=== PATIENT | male | born 1960 | race Caucasian/White ===

== ENCOUNTER 2024-01-17 08:29 | Day surgery (SDC) | payer OTHER ==
[2024-01-14 11:27] LABS: Absolute Eosinophils 0.3 K/uL (0-0.5); Absolute Lymphocytes (CBC) 2.1 K/uL (0.7-4.9); Absolute Monocytes 0.5 K/uL (0.1-1.3); Absolute Neutrophil 5.1 K/uL (1.8-8.0); Basophils % 0.5 % (0-1.3); Eosinophils % 4.3 % (0-4.4); Hematocrit 43.2 % (39.6-49.0); Hemoglobin 14.4 g/dL (13.6-17.9); Lymphocytes % 25.4 % (15.3-44.8); MCH 29.7 pg (27.0-35.0); MCHC 33.2 g/dL (32.0-36.0); MCV 89.3 fL (80-100); MPV 8.6 fL (7.6-11.3); Monocytes % 6.1 % (3.3-12.3); Neutrophils % 63.7 % (41.7-73.7); Platelets 246 thou/uL (152-406); RBC Red Blood Cell Count 4.84 M/uL (4.33-5.43); Red Cell Distribution Width 13.5 % (12.1-15.2)
[2024-01-14 11:47] LABS: ALT/SGPT 16 U/L (16-61); Albumin 3.4 g/dL (3.4-5.0); Alkaline Phosphatase 42 U/L (45-117); Anion Gap 7.3 mEq/L (5.0-15.0); BUN Blood Urea Nitrogen 15 mg/dL (7-18); Bicarbonate 30 mEq/L (21-32); Bilirubin Total 0.4 mg/dL (0.2-1.0); Globulin 3.3 g/dL (2.3-3.5); Glomerular Filtration Rate 66 ml/min (=/>90); Glucose Level 131 mg/dL (74-106); Lipase 38 U/L (13-75); Potassium 4.3 mEq/L (3.5-5.1); Protein, Total 6.7 g/dL (6.4-8.2); Sodium Level 141 mEq/L (136-145)
--- NOTE | 2024-01-14 11:47 | RAD REPORT ---
EXAMINATION: TWO VIEW CHEST XR CLINICAL INDICATION: Pre op pending cholecystectomy/hernia repair TECHNIQUE: 2 views of the chest was performed. COMPARISON: No prior exam. FINDINGS: The lungs are well inflated and clear. The heart is normal in size. No displaced fractures evident. IMPRESSION: No acute or significant abnormalities.
[2024-01-14 11:57] LABS: AST/SGOT < 10 U/L (15-37); Bilirubin Direct < 0.2 mg/dL (0-0.2); Bilirubin Indirect, Calculated 0.2 mg/dL (0.2-0.8)
[2024-01-17] MEDS ORDERED: ONDANSETRON 4 MG/2 ML VIAL ONE (08:49)
[2024-01-17] MEDS ORDERED: propofoL 200 MG/20 ML VIAL IV ONE (08:49)
[2024-01-17] MEDS ORDERED: MIDAZOLAM HCL 2 MG/2 ML INJ ONE (08:49)
[2024-01-17] MEDS ORDERED: ROCURONIUM 50 MG/5 ML VIAL IV ONE (08:49)
[2024-01-17] MEDS ORDERED: LIDOCAINE 1% MPF 5 ML VIAL ONE (08:49)
[2024-01-17] MEDS ORDERED: FENTANYL CITR 100 MCG/2 ML ONE (08:49)
[2024-01-17] MEDS ORDERED: KETOROLAC 30 MG/ML INJ ONE (08:49)
[2024-01-17] MEDS: Ringers Lactate 1,000 ML IV ONE (08:50)
[2024-01-17] MEDS ORDERED: GLYCOPYRROLATE 0.2 MG/ML SYR ONE (08:50)
[2024-01-17] MEDS: CEFOXITIN SODIUM 1 GM/VIAL ONE (10:20)
--- NOTE | 2024-01-17 11:12 | P.BOP ---
Preoperative diagnosis: acute cholecystitis, symptomatic cholelithiasis, umbilical hernia Postoperative diagnosis: same Primary procedure: 1. Laparoscopic cholecystectomy Secondary procedure: 2. Open repair of umbilical hernia Estimated blood loss: <10cc Specimen: gb, sac Findings: as above Anesthesia: General Complications: None Transferred to: Recovery Room Condition: Good
[2024-01-17 12:18] VITALS: BP 110/58; TEMP 98; O2SAT 100
[2024-01-17] MEDS: CODEINE 30MG/APAP 300MG TAB ONE (12:33)
--- NOTE | 2024-01-18 13:05 | EKG ---
Test Date: 2024-01-14 Test Time: 11:06:04 Fire Chief: MOOK MEASUREMENT RESULTS: Intervals: Rate: 65 [place]: 170 QRSD: 100 QT: 408 QTc: 424 [place]: P: 44 [place]: 170 QRS: 69 T: 60 INTERPRETIVE STATEMENTS: Normal sinus rhythm Normal ECG No previous ECG available for comparison Electronically Signed On 01-18-24 12:53:47 CDT by Ayad Pollard
== END 2024-01-17 13:23 | disposition home or self-care (01) ==
LOC: OR 08:29
PROVIDERS: ATTEND Surgery
PROC: 0FT44ZZ Resection of Gallbladder, Percutaneous Endoscopic Approach (ICD-10-PCS; principal; 2024-01-17 09:45)
DX: K80.12 Calculus of gallbladder with acute and chronic cholecystitis without obstruction (principal); K42.9 Umbilical hernia without obstruction or gangrene
CPT/HCPCS: 93005; 85025; 80048; 36415; 80076; 83690; 71046; 47562; J2704; J2001; J2250; J3010; J0694; J2405; J7120; 88302; 88304